=== PATIENT | female | born 1995 ===

== ENCOUNTER 2016-11-17 11:33 | Emergency (ER) | payer SELFPAY ==
[2016-11-17 11:42] VITALS: BP 121/67
[2016-11-17 13:20] LABS: CHLORIDE,CL 101 mmol/L (101-111); SODIUM,NA 134 mmol/L (135-145)
--- NOTE | 2016-11-17 14:13 | EDM.PDOC ---
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 She will go a month without a period and then she will have bleeding for a day and then more bleeding a couple of weeks later. No dizziness or lightheadedness. No chest pain or shortness of breath. No abdominal pain or nausea. She is sexually active and not using any control. Her partner does not use condoms. She has a 4 year at home. She did 3 home tests, all of which were negative. She came in confirmation of and for irregular menses. Severity: Mild Improves with: Reports: None Worsens with: Reports: None Associated Symptoms: Reports: No Other Symptoms - Related Data Allergies Allergy/AdvReac Type Severity Reaction Status Date / Time enviromental Allergy Sneezing Uncoded 11/17/16 11:42 Home Meds: Home Meds . 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 Musculoskeletal History: Reports: None Neurological History: Reports: None Psychiatric History: Reports: None Endocrine/Metabolic History: Reports: None Hematologic History: Reports: None Immunologic History: Reports: None Oncologic (Cancer) History: Reports: None Dermatologic History: Reports: None - Past Surgical History Head Surgeries/Procedures: Reports: None Social & Family History - Family History Family Medical History: Noncontributory - Tobacco Use Smoking Status *Q: Current Every Day Smoker Years of Tobacco use: 10 Packs/Tins Daily: 0.5 Second Hand Smoke Exposure: No - Caffeine Use Caffeine Use: Reports: Coffee, Soda - Recreational Drug Use Recreational Drug Use: No ED ROS GENERAL - Review of Systems Review Of Systems: ROS reveals no pertinent complaints other than HPI. ED EXAM, RENAL/ - Physical Exam Exam: See Below Exam Limited By: No Limitations General Appearance: Alert Eye Exam: Bilateral Eye: Normal Inspection Head: Atraumatic, Normocephalic Neck: Normal Inspection, Supple GI/Abdominal: Soft, Non-Tender, No Organomegaly, No Distention Extremities: Normal Range of Motion Neurological: Alert, Oriented, CN II-XII Intact, Normal Cognition, Normal Gait, Normal Reflexes, No Motor/Sensory Deficits Psychiatric: Normal Affect, Normal Mood Skin Exam: Warm, Dry, Intact, Normal Color, No Rash, Other (facial acne) Lymphatic: No Adenopathy Course - Vital Signs Last Recorded V/S: Last Vital Signs Temp 98 F 11/17/16 11:38 Pulse 98 11/17/16 11:38 Resp 16 11/17/16 11:38 BP 121/67 11/17/16 11:38 Pulse Ox 99 11/17/16 11:38 - Orders/Labs/Meds Labs: Laboratory Tests 11/17/16 11/17/16 11/17/16 Range/Units 12:47 12:47 12:48 WBC 9.3 (5.0-10.0) 10^3/uL RBC 4.31 (4.2-5.4) 10^6/uL Hgb 12.6 (12.0-16.0) g/dL Hct 39.2 (37.0-47.0) % MCV 91.0 (80-100) fL MCH 29.2 (27.0-34.0) pg MCHC 32.1 L (33.0-35.0) g/dL Plt Count 292 (150-450) 10^3/uL Neut % (Auto) 63.1 (42.2-75.2) % Lymph % (Auto) 29.0 (20.5-50.1) % [place] % (Auto) 6.3 (2-8) % Eos % (Auto) 1.2 (1.0-3.0) % Baso % (Auto) 0.4 (0.0-1.0) % Sodium 134 L (135-145) mmol/L Potassium 3.9 (3.6-5.0) mmol/L Chloride 101 (101-111) mmol/L Carbon Dioxide 30.0 (21.0-31.0) mmol/L Anion Gap 6.9 BUN 10 (7-18) mg/dL Creatinine 0.7 (0.6-1.3) mg/dL Est Cr Clr Drug Dosing 111.88 mL/min Estimated GFR (MDRD) > 60 BUN/Creatinine Ratio 14.28 Glucose 90 (74-105) mg/dL Calcium 9.0 (8.4-10.2) mg/dl Total Bilirubin 0.4 (0.2-1.0) mg/dL AST 55 H (10-42) IU/L ALT 84 H (10-60) IU/L Alkaline Phosphatase 92 (42-121) IU/L Total Protein 7.6 (6.7-8.2) g/dl Albumin 4.0 (3.2-5.5) g/dl Globulin 3.6 Albumin/Globulin Ratio 1.11 Urine HCG, Qual Negative Departure - Departure Time of Disposition: 14:12 Disposition: Home, Self-Care 01 Condition: good Clinical Impression: Dysfunctional uterine bleeding - Discharge Information Instructions: Dysmenorrhea, [id number], Safe Sex Forms: ED Department Discharge Additional Instructions: Follow up with your doctor in a couple of week.
== END 2016-11-17 14:22 | disposition home or self-care (01) ==
LOC: DL.ED 11:33
DX: N93.8 Other specified abnormal uterine and vaginal bleeding (principal); F17.210 Nicotine dependence, cigarettes, uncomplicated; Z91.09 Other allergy status, other than to drugs and biological substances
CPT/HCPCS: 36415; 80053; 81025; 85025; 99282; 99284